=== PATIENT | female | born 1995 | race Caucasian/White ===

== ENCOUNTER 2017-11-24 15:38 | Emergency (ER) | payer OTHER ==
--- NOTE | 2017-11-24 15:41 | ED Physician Documentation ---
PD HPI HEENT - Stated complaint Stated Complaint: FO/L EAR - History obtained from History obtained from: Patient - History of Present Illness Timing - onset: Today Timing - details: Abrupt onset (She did put an ear plug in her ear, the compressed foam type, and when she tried to take it out it broke off. She tried to get it out but it is falling apart in little pieces as they try to grab at it. Her ear was getting tender. She came in here for further evaluation. This sat in there was just in the last hour or 2.), Still present Location: Left ear Associated symptoms: No: Headache Similar symptoms before: Has not had sx before Recently seen: Not recently seen Review of Systems Ears: reports: Loss of hearing (c/w ear plug) PD PAST MEDICAL HISTORY - Past Medical History HEENT: None - Allergies Allergies/Adverse Reactions: Allergies Allergy/AdvReac Type Severity Reaction Status Date / Time No Known Drug Allergies Allergy Verified 11/24/17 15:43 PD ED PE NORMAL - Vitals Vital signs reviewed: Yes - General General: Alert and oriented X 3, No acute distress, Well developed/nourished - HEENT HEENT: No: Ears normal (Right ear and canal are normal. The left ear canal has a phone earplug still present in the mid canal. It is occluding the ear canal so the distal part cannot be seen. I try taking it out with curette and also alligator forceps. He comes out in little crumbled pieces. I am able to get it out enough so there is just a small portion left down in the canal almost near the eardrum. It is getting pretty tender there and there is some slight bleeding from the wall of the canal from the manipulation. The remaining piece was tried to be irrigated out by nursing but it did not come loose right at this time. However the diameter of the piece remaining is smaller than the ear canal and she is pretty uncomfortable at this point so I think if we just keep irrigating it and give it some time the remaining part will come out in the next couple of days. This would also give time for ear canal to be less tender and she can recheck with her primary care or us if there is still concern for residual foreign body.) Results - Vitals Vitals: Vital Signs - 24 hr 11/24/17 15:41 Temperature 36.6 C Heart Rate 99 Respiratory 16 Rate Blood Pressure 129/87 H O2 Saturation 98 Oxygen O2 Source Room air PD MEDICAL DECISION MAKING - ED course Complexity details: re-evaluated patient - Sepsis Event Vital Signs: Vital Signs - 24 hr 11/24/17 15:41 Temperature 36.6 C Heart Rate 99 Respiratory 16 Rate Blood Pressure 129/87 H O2 Saturation 98 Oxygen O2 Source Room air Departure - Departure Disposition: 01 Home, Self Care Clinical Impression: Ear foreign body Qualifiers: Encounter type: initial encounter Laterality: left Qualified Code(s): T16.2XXA - Foreign body in left ear, initial encounter Condition: Stable Record reviewed to determine appropriate education?: Yes Instructions: ED Foreign Body Ear Canal Follow-Up: JAMESON Dennison [Provider Group] Comments: Saline or water ear drops/flush a few times daily for 1-2 days. Most of the plug is out, with just a small piece down by the ear drum that did not want to flush out just yet and the ear canal is pretty irritated now. We will see if it flushes out in the next day or so and let the ear canal heal up a bit. Recheck ear in a few days (Tuesday or so) to see if it has cleared all out (PCP or here) unless it does visually come out.
[2017-11-24 15:46] VITALS: BP 129/87
== END 2017-11-24 16:30 | disposition home or self-care (01) ==
LOC: ED 15:38
DX: T16.2XXA Foreign body in left ear, initial encounter (principal)
CPT/HCPCS: 69200; 99282; 99283

== ENCOUNTER 2017-12-02 12:02 | Emergency (ER) | payer OTHER ==
[2017-12-02 12:12] VITALS: BP 142/91
--- NOTE | 2017-12-02 13:04 | ED Physician Documentation ---
PD HPI HEENT FB - Stated complaint Additional information: L ear FB - Chief complaint Chief Complaint: Heent - History obtained from History obtained from: Patient - History of Present Illness Timing - onset: How many days ago (10) Pain level max: 4 Pain level now: 4 Location: Left ear Associated symptoms: No: Fever, Congestion, Rhinorrhea, Trismus, Unable to swallow, Swollen nodes, Facial swelling, Headache, Cough Similar symptoms before: Diagnosis (Left ear foreign body, part of an ear plug broke off in her ear canal) Recently seen: Other (Patient was seen here proximal a week ago, but it was unable to be removed at that time.) Review of Systems Constitutional: denies: Fever Ears: reports: Ear pain (Pain in the left ear) GI: denies: Vomiting, Diarrhea : reports: Other (Patient denies any possibility of . States she is not breast-feeding and is not trying to become ). denies: Now EGA PD PAST MEDICAL HISTORY - Past Medical History Past Medical History: No HEENT: None - Past Surgical History Past Surgical History: No - Present Medications Home Medications: Ambulatory Orders Medication Instructions Recorded Confirmed Neomycin/Polymyx/Hc Otic Drops 4 drops OT TID 7 Days #1 bottle 12/02/17 [Cortisporin Ear Susp] - Allergies Allergies/Adverse Reactions: Allergies Allergy/AdvReac Type Severity Reaction Status Date / Time No Known Drug Allergies Allergy Verified 12/02/17 12:12 - Social History Does the pt smoke?: No Smoking Status: Never smoker - Immunizations Immunizations are current?: Yes PD ED PE NORMAL - Vitals Vital signs reviewed: Yes - General General: Alert and oriented X 3, No acute distress - HEENT HEENT: Other (Left ear canal - [place] foreign object is in place. No bleeding. Unable to visualize the tympanic membrane) - Derm Derm: Warm and dry - Neuro Neuro: Alert and oriented X 3 Results - Vitals Vitals: Vital Signs - 24 hr 12/02/17 12:08 Temperature 36.9 C Heart Rate 69 Respiratory 16 Rate Blood Pressure 142/91 H O2 Saturation 96 Oxygen O2 Source Room air PD MEDICAL DECISION MAKING - ED course Complexity details: reviewed old records, considered differential, d/w patient ED course: Patient is a 22-year-old female who presents to the emergency department with left ear foreign body. A small amount of Dermabond was placed on the wooden end of a Q-tip which was then allowed to glue itself to the ear plug and was removed. Patient tolerated well. The ear canal is erythematous after removal and brain is dull and erythematous. Will place her on otic antibiotics and follow-up with her doctor for repeat evaluation. No evidence of perforation. Patient counseled regarding signs and symptoms for which I believe and urgent re-evaluation would be necessary. Patient with good understanding of and agreement to plan and is comfortable going home at this time This document was made in part using voice recognition software. While efforts are made to proofread this document, sound alike and grammatical errors may occur. - Sepsis Event Vital Signs: Vital Signs - 24 hr 12/02/17 12:08 Temperature 36.9 C Heart Rate 69 Respiratory 16 Rate Blood Pressure 142/91 H O2 Saturation 96 Oxygen O2 Source Room air Departure - Departure Disposition: 01 Home, Self Care Clinical Impression: Ear foreign body Qualifiers: Encounter type: initial encounter Laterality: left Qualified Code(s): T16.2XXA - Foreign body in left ear, initial encounter Condition: Good Instructions: ED Foreign Body Ear Canal Follow-Up: your,doctor in 1 week to recheck your ear. [Other] Prescriptions: Neomycin/Polymyx/Hc Otic Drops [Cortisporin Ear Susp] 4 drops OT TID 7 Days #1 bottle Comments: Use the ear drops as prescribed. This was sent to [facility]. Return if you worsen. Follow up with your doctor in 1 week for re-evaluation of your ear.
== END 2017-12-02 13:11 | disposition home or self-care (01) ==
LOC: ED 12:02
DX: T16.2XXA Foreign body in left ear, initial encounter (principal)
CPT/HCPCS: 69200; 99283

== ENCOUNTER 2018-03-11 19:37 | Emergency (ER) | payer OTHER ==
[2018-03-11 20:13] LABS: BILIRUBIN,URINE NEGATIVE (NEGATIVE); GLUCOSE, URINE (UA) NEGATIVE (NEGATIVE); KETONES,URINE (UA) NEGATIVE (NEGATIVE); LEUKOCYTE ESTERASE, URINE NEGATIVE (NEGATIVE); NITRITE,URINE NEGATIVE (NEGATIVE); OCCULT BLOOD,URINE NEGATIVE (NEGATIVE); PROTEIN,URINE NEGATIVE (NEGATIVE); UROBILINOGEN,URINE 0.2 (NORMAL) E.U./dL (NORMAL)
[2018-03-11 20:17] LABS: CLARITY,URINE CLEAR (CLEAR); HCG UR QUAL NEGATIVE
--- NOTE | 2018-03-11 20:33 | ED Physician Documentation ---
PD HPI ABD PAIN - Stated complaint Stated Complaint: BLOOD IN STOOL - Chief complaint Chief Complaint: Abd Pain - History obtained from History obtained from: Patient - History of Present Illness Timing - onset: Other (This is a 22-year-old woman with remote cholecystectomy who for the last 6 months has had soft stools of varying color with occasional hematochezia and upper abdominal pain without weight loss, sweats, or fevers. There is no nausea or vomiting with it.) Review of Systems Constitutional: denies: Fever, Chills, Myalgias, Fatigue, Weight Loss, Sweats GI: reports: Abdominal Pain, Diarrhea. denies: Nausea, Vomiting, Constipation PD PAST MEDICAL HISTORY - Past Medical History HEENT: None - Past Surgical History Past Surgical History: No - Present Medications Home Medications: Ambulatory Orders Medication Instructions Recorded Confirmed Neomycin/Polymyx/Hc Otic Drops 4 drops OT TID 7 Days #1 bottle 12/02/17 [Cortisporin Ear Susp] - Allergies Allergies/Adverse Reactions: Allergies Allergy/AdvReac Type Severity Reaction Status Date / Time No Known Drug Allergies Allergy Verified 03/11/18 19:58 - Social History Does the pt smoke?: No Smoking Status: Never smoker - Immunizations Immunizations are current?: Yes PD ED PE NORMAL - Vitals Vital signs reviewed: Yes - General General: Alert and oriented X 3, No acute distress - Abdomen Abdomen: Normal bowel sounds, Soft, Non tender - Extremities Extremities: No edema, No calf tenderness / cord - Neuro Neuro: Alert and oriented X 3, Normal speech Results - Vitals Vitals: Vital Signs - 24 hr 03/11/18 19:50 Temperature 36.9 C Heart Rate 89 Respiratory 18 Rate Blood Pressure 126/83 H O2 Saturation 100 Oxygen O2 Source Room air - Labs Labs: Laboratory Tests 03/11/18 03/11/18 03/11/18 20:00 20:21 20:21 WBC 9.9 RBC 4.83 Hgb 14.1 Hct 42.1 MCV 87.3 MCH 29.2 MCHC 33.4 RDW 13.1 Plt Count 367 MPV 7.6 L Neut # (Auto) 5.2 Lymph # (Auto) 3.8 H [place] # (Auto) 0.6 Eos # (Auto) 0.1 Baso # (Auto) 0.1 Absolute Nucleated RBC 0.00 Nucleated RBC % 0.0 Sodium 136 Potassium 3.5 Chloride 103 Carbon Dioxide 25 Anion Gap 8.0 BUN 12 Creatinine 0.6 Estimated GFR (MDRD) 126 Glucose 92 Calcium 9.4 Total Bilirubin 0.5 AST 39 ALT 48 Alkaline Phosphatase 81 Total Protein 8.1 Albumin 4.5 Globulin 3.6 Albumin/Globulin Ratio 1.3 Lipase 26 Urine Color YELLOW Urine Clarity CLEAR Urine pH 7.0 Ur Specific [place] 1.020 Urine Protein NEGATIVE Urine Glucose (UA) NEGATIVE Urine Ketones NEGATIVE Urine Occult Blood NEGATIVE Urine Nitrite NEGATIVE Urine Bilirubin NEGATIVE Urine Urobilinogen 0.2 (NORMAL) Ur Leukocyte Esterase NEGATIVE Ur Microscopic Review NOT INDICATED Urine Culture Comments NOT INDICATED Urine HCG, Qual NEGATIVE PD MEDICAL DECISION MAKING - ED course ED course: This is a 22-year-old woman with change in stool caliber and hematochezia that is subacute to chronic without weight loss or abdominal tenderness. The history is most consistent with inflammatory bowel disease, less likely would be malignancy or IBS. She will need a colonoscopy and this was discussed with her. Departure - Departure Disposition: 01 Home, Self Care Clinical Impression: Hematochezia Diarrhea Qualifiers: Diarrhea type: unspecified type Qualified Code(s): R19.7 - Diarrhea, unspecified Condition: Good Record reviewed to determine appropriate education?: Yes Follow-Up: Jimmy Zaidi MD [Provider Admit Priv/Credential] - Comments: FOLLOWUP WITH THE PHYSICIAN LISTED FOR EVALUATION FOR COLONOSCOPY Return for new or worsening symptoms.
[2018-03-11 20:36] LABS: BASOPHILS # (AUTO) 0.1 10^3/uL (0.0-0.1); BASOPHILS % (AUTO) 0.7 %; EOSINOPHILS # (AUTO) 0.1 10^3/uL (0.0-0.7); EOSINOPHILS % (AUTO) 1.3 %; HGB - HEMOGLOBIN 14.1 g/dL (12.0-16.0); LYMPHOCYTES # (AUTO) 3.8 10^3/uL (1.5-3.5); LYMPHOCYTES % (AUTO) 38.7 %; MEAN CORPUSCULAR HEMOGLOBIN 29.2 pg (27.0-31.0); MEAN CORPUSCULAR HGB CONC 33.4 g/dL (32.0-36.0); MEAN CORPUSCULAR VOLUME 87.3 fL (81.0-99.0); MEAN PLATELET VOLUME 7.6 fL (7.9-10.8); MONOCYTES # (AUTO) 0.6 10^3/uL (0.0-1.0); MONOCYTES % (AUTO) 6.1 %; NEUTROPHILS # (AUTO) 5.2 10^3/uL (1.5-6.6); NEUTROPHILS % (AUTO) 53.2 %; PLT - PLATELET COUNT 367 10^3/uL (130-450); RED BLOOD COUNT 4.83 10^6/uL (4.20-5.40); RED CELL DISTRIBUTION WIDTH 13.1 % (12.0-15.0); WHITE BLOOD COUNT 9.9 x10^3/uL (4.8-10.8)
[2018-03-11 20:55] LABS: ALBUMIN 4.5 g/dL (3.2-5.5); ALBUMIN/GLOBULIN RATIO 1.3 (1.0-2.2); BILIRUBIN,TOTAL 0.5 mg/dL (0.2-1.0); CALCIUM 9.4 mg/dL (8.5-10.3); CREATININE 0.6 mg/dL (0.4-1.0); TOTAL PROTEIN 8.1 g/dL (6.7-8.2)
[2018-03-11 21:21] VITALS: BP 138/83
== END 2018-03-11 21:23 | disposition home or self-care (01) ==
LOC: ED 19:37
DX: K92.1 Melena (principal)
CPT/HCPCS: 36415; 80053; 81001; 81003; 81025; 83690; 85025; 87086; 99283

== ENCOUNTER 2019-12-06 16:58 | Emergency (ER) | payer OTHER ==
--- NOTE | 2019-12-06 17:56 | ED Physician Documentation ---
History of Present Illness - Stated complaint Stated Complaint: DIZZINESS, LIGHTHEADED - Chief complaint Chief Complaint: Neuro - History obtained from History obtained from: Patient - History of Present Illness Timing: How many weeks ago (3) - Additonal information Additional information: 24-year-old female presents to the emergency department for chief complaint of feeling lightheaded and sometimes dizzy. She reports that when she goes from sitting to standing or laying she often see stars. She denies any syncope. She has no chest pain or shortness of breath. No abdominal pain nausea or vomiting. She denies a possibility of , she just ended her menses. The sensations that she experienced typically lasts seconds before abating fully. She denies any ataxia slurred speech arm or leg weakness, diplopia, headache. Denies dysuria urgency or frequency. She has no ear pain, tinnitus. She denies any history of DVT or cancer. No unilateral leg swelling. It should be noted that this young lady drove another 1 of our patients into the ER and decided to get checked out. She does however report to me that she called her doctor who told her also to come to the ER. Review of Systems Constitutional: reports: Reviewed and negative Eyes: reports: Reviewed and negative Ears: reports: Reviewed and negative Nose: reports: Reviewed and negative Throat: reports: Reviewed and negative Cardiac: reports: Reviewed and negative Respiratory: reports: Reviewed and negative GI: reports: Reviewed and negative : reports: Reviewed and negative Skin: reports: Reviewed and negative Musculoskeletal: reports: Reviewed and negative Neurologic: reports: Near syncope. denies: Generalized weakness, Focal weakness, Numbness, Difficulty speaking, Syncope, Seizure, Confused, Altered mental status, Headache, LOC PD PAST MEDICAL HISTORY - Past Medical History Past Medical History: No Cardiovascular: None Respiratory: None Neuro: None Endocrine/Autoimmune: None GI: None CARDIO TECH: None : None HEENT: None Psych: None Musculoskeletal: None Derm: None - Past Surgical History Past Surgical History: No General: Cholecystectomy HEENT: Tonsil/Adenoidectomy - Allergies Allergies/Adverse Reactions: Allergies Allergy/AdvReac Type Severity Reaction Status Date / Time No Known Drug Allergies Allergy Verified 12/06/19 17:05 - Social History Does the pt smoke?: No Smoking Status: Never smoker Does the pt drink ETOH?: No Does the pt have substance abuse?: Yes Substance Use and Type: Marijuana - Immunizations Immunizations are current?: Yes - POLST Patient has POLST: No PD ED PE EXPANDED - General General: Alert, No acute distress, Well developed/nourished - HEENT HEENT: Atraumatic, PERRL, EOMI - Eyes Eyes: PERRL, Normal accommodation - Neck Neck: Supple w/out meningeal sx. No: Adenopathy - Cardiac Cardiac: Regular Rate, Regular Rhythm, Radial strong equal, Femoral strong equal, Pedal strong equal, Cap refill < 2 sec. No: Murmur Present - Respiratory Respiratory: Clear to ausultation latoya. No: Distress, Labored, Stridor - Abdomen Abdomen: Normal Bowel sounds. No: Distended, Tender to palpation, Rebound, Guarding - Derm Derm: Normal color, Warm and dry. No: Rash - Extremities Extremities: Normal. No: Pedal edema bilateral - Neuro Neuro: Alert and Oriented X 3, Normal Sensation, Normal Speech, Normal reflexes, CNII-XII intact, PERRL, Cerebellar nl, Normal gait, Normal finger nose, Normal speech. No: Confused, Disoriented, Lethargic, Nystagmus - GCS Eye Opening: Spontaneous Motor: Obeys Commands Verbal: Oriented Total: 15 - Psych Psych: Normal Results - Vitals Vitals: Vital Signs - 24 hr 12/06/19 12/06/19 12/06/19 17:03 17:37 18:00 Temperature 36.8 C Heart Rate 64 64 Heart Rate [ 76 Sitting] Heart Rate [ 83 Standing] Heart Rate [ 77 Supine] Respiratory 16 16 Rate Blood Pressure 123/73 112/72 Blood Pressure 134/85 H [Sitting] Blood Pressure 117/81 H [Standing] Blood Pressure 119/75 [Supine] O2 Saturation 99 97 Oxygen O2 Source Room air - EKG (time done) 1724 Rate: Rate (enter#) (66) Rhythm: NSR [place]: Normal Intervals: Normal [place] QRS: Normal Ischemia: Normal ST segments Compare to prior EKG: Old EKG unavailable Computer interpretation: Agree with computer - Labs Labs: Laboratory Tests 12/06/19 12/06/19 12/06/19 17:53 17:53 17:53 WBC 10.9 H RBC 4.80 Hgb 14.5 Hct 42.6 MCV 88.8 MCH 30.2 MCHC 34.0 RDW 12.1 Plt Count 375 MPV 9.5 Neut # (Auto) 7.1 H Lymph # (Auto) 2.9 [place] # (Auto) 0.6 Eos # (Auto) 0.1 Baso # (Auto) 0.1 Absolute Nucleated RBC 0.00 Nucleated RBC % 0.0 Sodium 137 Potassium 3.6 Chloride 101 Carbon Dioxide 21 Anion Gap 15.0 H BUN 12 Creatinine 0.6 Estimated GFR (MDRD) 124 Glucose 83 Calcium 9.5 Total Bilirubin 0.7 AST 21 ALT 26 Alkaline Phosphatase 56 Troponin I High Sens < 2.3 L Total Protein 8.4 H Albumin 4.8 Globulin 3.6 Albumin/Globulin Ratio 1.3 Lipase 28 Urine Color Urine Clarity Urine pH Ur Specific [place] Urine Protein Urine Glucose (UA) Urine Ketones Urine Occult Blood Urine Nitrite Urine Bilirubin Urine Urobilinogen Ur Leukocyte Esterase Ur Microscopic Review Urine Culture Comments Urine HCG, Qual 12/06/19 17:53 WBC RBC Hgb Hct MCV MCH MCHC RDW Plt Count MPV Neut # (Auto) Lymph # (Auto) [place] # (Auto) Eos # (Auto) Baso # (Auto) Absolute Nucleated RBC Nucleated RBC % Sodium Potassium Chloride Carbon Dioxide Anion Gap BUN Creatinine Estimated GFR (MDRD) Glucose Calcium Total Bilirubin AST ALT Alkaline Phosphatase Troponin I High Sens Total Protein Albumin Globulin Albumin/Globulin Ratio Lipase Urine Color YELLOW Urine Clarity CLEAR Urine pH 6.0 Ur Specific [place] 1.025 Urine Protein NEGATIVE Urine Glucose (UA) NEGATIVE Urine Ketones >=80 H Urine Occult Blood NEGATIVE Urine Nitrite NEGATIVE Urine Bilirubin NEGATIVE Urine Urobilinogen 0.2 (NORMAL) Ur Leukocyte Esterase NEGATIVE Ur Microscopic Review NOT INDICATED Urine Culture Comments NOT INDICATED Urine HCG, Qual NEGATIVE - Rads (name of study) cxr Radiology: EMP read indepedently (No acute cardiopulmonary process) PD MEDICAL DECISION MAKING - ED course Complexity details: reviewed old records, reviewed results, re-evaluated patient, considered differential, d/w patient ED course: 24-year-old female presents to the emergency department for evaluation of feeling lightheaded and dizzy especially with position changes. She does endorse seeing stars in her visual field that lasts only a sec or two before abating. - Patient's EKG is sinus rhythm. High-sensitivity troponin is negative. Her chest x-ray shows no acute focal infiltrates. Exam today is not consistent with ACS or heart failure. - We did check patient's orthostatic vitals and there are no orthostatic changes. She has no signs of a urinary act infection and her neurological and cerebellar exam are double. At this time it is not clear what the cause of her lightheadedness is but she is stable for discharge home and she request to be discharged at this time. I have advised close follow-up with her primary care doctor Departure - Departure Disposition: Home, Self Care Clinical Impression: Light-headed feeling Condition: Stable Record reviewed to determine appropriate education?: Yes Follow-Up: DIEGO FOURNIER MD [Primary Care Provider] - Comments: [place] today your labs are unremarked below. Your chest x-ray and EKG are normal. We checked your orthostatic vital signs and those were also remote. At this time it is not clear what the cause of feeling lightheaded is. I do recommend close follow-up with your primary care provider. If you develop chest pain or shortness of breath or have any fainting episodes please return to the emergency department
[2019-12-06 18:11] LABS: BASOPHILS # (AUTO) 0.1 10^3/uL (0.0-0.1); BASOPHILS % (AUTO) 0.7 %; EOSINOPHILS # (AUTO) 0.1 10^3/uL (0.0-0.7); EOSINOPHILS % (AUTO) 0.7 %; HGB - HEMOGLOBIN 14.5 g/dL (12.0-16.0); LYMPHOCYTES # (AUTO) 2.9 10^3/uL (1.5-3.5); LYMPHOCYTES % (AUTO) 27.1 %; MEAN CORPUSCULAR HEMOGLOBIN 30.2 pg (27.0-31.0); MEAN CORPUSCULAR VOLUME 88.8 fL (81.0-99.0); MEAN PLATELET VOLUME 9.5 fL (7.9-10.8); MONOCYTES # (AUTO) 0.6 10^3/uL (0.0-1.0); MONOCYTES % (AUTO) 5.9 %; NEUTROPHILS # (AUTO) 7.1 10^3/uL (1.5-6.6); NEUTROPHILS % (AUTO) 65.2 %; PLT - PLATELET COUNT 375 10^3/uL (130-450); RED CELL DISTRIBUTION WIDTH 12.1 % (12.0-15.0); WHITE BLOOD COUNT 10.9 x10^3/uL (4.8-10.8)
[2019-12-06 18:12] LABS: BILIRUBIN,URINE NEGATIVE (NEGATIVE); GLUCOSE, URINE (UA) NEGATIVE (NEGATIVE); KETONES,URINE (UA) >=80 mg/dL (NEGATIVE); LEUKOCYTE ESTERASE, URINE NEGATIVE (NEGATIVE); NITRITE,URINE NEGATIVE (NEGATIVE); OCCULT BLOOD,URINE NEGATIVE (NEGATIVE); PROTEIN,URINE NEGATIVE (NEGATIVE); UROBILINOGEN,URINE 0.2 (NORMAL) E.U./dL (NORMAL)
[2019-12-06 18:13] LABS: CLARITY,URINE CLEAR (CLEAR)
[2019-12-06 18:14] LABS: HCG UR QUAL NEGATIVE
[2019-12-06 18:23] LABS: ALBUMIN 4.8 g/dL (3.2-5.5); ALBUMIN/GLOBULIN RATIO 1.3 (1.0-2.2); BILIRUBIN,TOTAL 0.7 mg/dL (0.2-1.0); CALCIUM 9.5 mg/dL (8.5-10.3); CREATININE 0.6 mg/dL (0.4-1.0); TOTAL PROTEIN 8.4 g/dL (6.7-8.2)
[2019-12-06 18:54] VITALS: BP 113/72
--- NOTE | 2019-12-06 19:03 | XRAY Report ---
PROCEDURE: Chest 1 View X-Ray INDICATIONS: Chest Pain TECHNIQUE: One view of the chest was acquired. COMPARISON: FINDINGS: Surgical changes and devices: None. Lungs and pleura: No pleural effusions or pneumothorax. Lungs are clear. Mediastinum: Mediastinal contours appear normal. Heart size is normal. Bones and chest wall: No suspicious bony lesions. Overlying soft tissues appear unremarkable. IMPRESSION: Normal for age, source of current symptoms is not seen. Reviewed by: Niraj Sotelo MD on 12/06/2019 7:01 PM PDT Approved by: Niraj Sotelo MD on 12/06/2019 7:01 PM PDT Station ID: [id number]
== END 2019-12-06 19:01 | disposition home or self-care (01) ==
LOC: ED 16:58
DX: R42 Dizziness and giddiness (principal); H53.8 Other visual disturbances
CPT/HCPCS: 36415; 71045; 80053; 81001; 81003; 81025; 83690; 84443; 84484; 85025; 87086; 93005; 99284

== ENCOUNTER 2020-03-20 18:52 | Emergency (ER) | payer OTHER ==
[2020-03-20 19:15] LABS: BILIRUBIN,URINE NEGATIVE (NEGATIVE); GLUCOSE, URINE (UA) NEGATIVE (NEGATIVE); KETONES,URINE (UA) NEGATIVE (NEGATIVE); LEUKOCYTE ESTERASE, URINE NEGATIVE (NEGATIVE); NITRITE,URINE NEGATIVE (NEGATIVE); OCCULT BLOOD,URINE NEGATIVE (NEGATIVE); PROTEIN,URINE NEGATIVE (NEGATIVE); UROBILINOGEN,URINE 0.2 (NORMAL) E.U./dL (NORMAL)
[2020-03-20 19:25] LABS: CLARITY,URINE CLOUDY (CLEAR); HCG UR QUAL NEGATIVE
[2020-03-20 19:25] LABS: BASOPHILS # (AUTO) 0.1 10^3/uL (0.0-0.1); BASOPHILS % (AUTO) 0.7 %; EOSINOPHILS # (AUTO) 0.1 10^3/uL (0.0-0.7); EOSINOPHILS % (AUTO) 0.6 %; HGB - HEMOGLOBIN 13.9 g/dL (12.0-16.0); LYMPHOCYTES % (AUTO) 25.3 %; MEAN CORPUSCULAR HEMOGLOBIN 29.7 pg (27.0-31.0); MEAN PLATELET VOLUME 9.6 fL (7.9-10.8); MONOCYTES # (AUTO) 0.6 10^3/uL (0.0-1.0); MONOCYTES % (AUTO) 4.7 %; NEUTROPHILS # (AUTO) 8.1 10^3/uL (1.5-6.6); NEUTROPHILS % (AUTO) 68.4 %; PLT - PLATELET COUNT 332 10^3/uL (130-450); RED BLOOD COUNT 4.68 10^6/uL (4.20-5.40); WHITE BLOOD COUNT 11.8 x10^3/uL (4.8-10.8)
[2020-03-20 19:26] LABS: AMORPHOUS SEDIMENT,UR Moderate /LPF; BACTERIA,URINE None Seen /HPF (None Seen); RBC,URINE None Seen /HPF (0-5); SQUAMOUS EPITHELIAL CELL,UR RARE Squamous (<= Few)
[2020-03-20 19:39] LABS: ALBUMIN 4.2 g/dL (3.2-5.5); ALBUMIN/GLOBULIN RATIO 1.3 (1.0-2.2); BILIRUBIN,TOTAL 0.4 mg/dL (0.2-1.0); CALCIUM 8.8 mg/dL (8.5-10.3); CREATININE 0.6 mg/dL (0.4-1.0); TOTAL PROTEIN 7.4 g/dL (6.7-8.2)
--- NOTE | 2020-03-20 19:55 | ED Physician Documentation ---
History of Present Illness - Stated complaint Stated Complaint: LT LOW BACK PX - Chief complaint Chief Complaint: Abd Pain - History obtained from History obtained from: Patient - History of Present Illness Timing: Today Pain level max: 8 Pain level now: 5 - Additonal information Additional information: 24-year-old female presents to the emergency department with right pelvic pain. She states this is worsened today. Intermittent, sharp. Normally lasts for a few seconds at a time. She states intermittently that is been there for several weeks to months. She states her LMP was 1 month ago. She states she had a Bartholin cyst in the past, but never an ovarian cyst. Review of Systems Constitutional: denies: Fever, Chills GI: denies: Vomiting, Constipation, Diarrhea, Hematemesis, Bloody / black stool : denies: Dysuria, Frequency, Hesitancy, Discharge, Now EGA Skin: denies: Rash Musculoskeletal: denies: Neck pain, Back pain Neurologic: denies: Headache PD PAST MEDICAL HISTORY - Past Medical History Cardiovascular: None Respiratory: None Neuro: None Endocrine/Autoimmune: None GI: None COMPLIANCE DIRECTOR: None : None HEENT: None Psych: None Musculoskeletal: None Derm: None - Past Surgical History Past Surgical History: Yes General: Cholecystectomy HEENT: Tonsil/Adenoidectomy - Present Medications Home Medications: Ambulatory Orders Medication Instructions Recorded Confirmed No Known Home Medications 03/20/20 03/20/20 - Allergies Allergies/Adverse Reactions: Allergies Allergy/AdvReac Type Severity Reaction Status Date / Time No Known Drug Allergies Allergy Verified 03/20/20 19:00 - Social History Does the pt smoke?: No Smoking Status: Never smoker Does the pt drink ETOH?: No Does the pt have substance abuse?: Yes - Immunizations Immunizations are current?: Yes - POLST Patient has POLST: No PD ED PE NORMAL - Vitals Vital signs reviewed: Yes - General General: Alert and oriented X 3, No acute distress, Well developed/nourished - HEENT HEENT: PERRL, Moist mucous membranes - Neck Neck: Supple, no meningeal sign - Cardiac Cardiac: RRR, Strong equal pulses - Respiratory Respiratory: No respiratory distress, Clear bilaterally - Abdomen Abdomen: Soft, Non distended, Other (Right pelvic tenderness. No tenderness at McBurney's point. No peritoneal signs.) - Back Back: No CVA TTP - Derm Derm: Warm and dry - Neuro Neuro: Alert and oriented X 3 - Psych Psych: Normal mood, Normal affect Results - Vitals Vitals: Vital Signs - 24 hr 03/20/20 03/20/20 03/20/20 18:55 19:00 20:49 Temperature 36.9 C 36.9 C 36.9 C Heart Rate 89 89 80 Respiratory 15 15 16 Rate Blood Pressure 132/74 H 132/74 H 130/60 O2 Saturation 99 99 100 Oxygen O2 Source Room air - Labs Labs: Laboratory Tests 03/20/20 03/20/20 03/20/20 19:05 19:16 19:16 WBC 11.8 H RBC 4.68 Hgb 13.9 Hct 42.1 MCV 90.0 MCH 29.7 MCHC 33.0 RDW 12.0 Plt Count 332 MPV 9.6 Neut # (Auto) 8.1 H Lymph # (Auto) 3.0 Wake # (Auto) 0.6 Eos # (Auto) 0.1 Baso # (Auto) 0.1 Absolute Nucleated RBC 0.00 Nucleated RBC % 0.0 Sodium 138 Potassium 3.6 Chloride 102 Carbon Dioxide 27 Anion Gap 9.0 BUN 7 Creatinine 0.6 Estimated GFR (MDRD) 124 Glucose 97 Calcium 8.8 Total Bilirubin 0.4 AST 19 ALT 16 Alkaline Phosphatase 51 Total Protein 7.4 Albumin 4.2 Globulin 3.2 Albumin/Globulin Ratio 1.3 Lipase 40 Urine Color LIGHT YELLOW Urine Clarity CLOUDY Urine pH 8.0 H Ur Specific [place] 1.015 Urine Protein NEGATIVE Urine Glucose (UA) NEGATIVE Urine Ketones NEGATIVE Urine Occult Blood NEGATIVE Urine Nitrite NEGATIVE Urine Bilirubin NEGATIVE Urine Urobilinogen 0.2 (NORMAL) Ur Leukocyte Esterase NEGATIVE Urine RBC None Seen Urine WBC 0-3 Ur Squamous Epith Cells RARE Squamous Amorphous Sediment Moderate Urine Bacteria None Seen Ur Microscopic Review INDICATED Urine Culture Comments NOT INDICATED Urine HCG, Qual NEGATIVE - Rads (name of study) Pelvic ultrasound Radiology: Prelim report reviewed, EMP read contemporaneously, See rad report PD MEDICAL DECISION MAKING - ED course Complexity details: reviewed results, re-evaluated patient, considered differential (No appendicitis, no peritonitis.), d/w patient ED course: 24-year-old female with a right ovarian cyst. There is a simple cyst on the right ovary, 1.9 x 1.7 x 1.9 cm. Likely the cause of her pain. No evidence of appendicitis. Patient is well-appearing, nontoxic. Afebrile. We will have her follow-up with her doctor for further care and repeat ultrasound in 3 to 6 weeks. Patient counseled regarding signs and symptoms for which I believe and urgent re-evaluation would be necessary. Patient with good understanding of and agreement to plan and is comfortable going home at this time This document was made in part using voice recognition software. While efforts are made to proofread this document, sound alike and grammatical errors may occur. 1. No evidence of ovarian torsion. Simple cyst seen in right ovary as above. Dominant follicles are noted in left ovary. No solid appearing ovarian lesion. 2. Mildly septated uterus. No endometrial mass or fluid. No discrete uterine fibroid. Departure - Departure Disposition: 01 Home, Self Care Clinical Impression: Ovarian cyst Qualifiers: Laterality: right Qualified Code(s): N83.201 - Unspecified ovarian cyst, right side Condition: Good Instructions: ED Cyst Ovarian Follow-Up: your,doctor in 2-3 weeks [Other] Comments: Follow-up with your doctor for further care. You will likely need a repeat ultrasound in about 4 weeks to ensure resolution of the cyst. Return if you worsen. You can use Motrin or Tylenol as needed for pain. You could also try Midol or Pamprin. Discharge Date/Time: 03/20/20 20:50
[2020-03-20] MEDS ORDERED: KETOROLAC 30 MG/ML VIAL IVP STA (20:38)
[2020-03-20 20:50] VITALS: BP 130/60
--- NOTE | 2020-03-20 20:53 | Ultrasound Report ---
PROCEDURE: Pelvic w/Transvag+Doppler Comp INDICATIONS: pelvic pain, R TECHNIQUE: Real-time scanning was performed of the pelvic organs, with image documentation. Additional endovagi nal scanning was necessary due to incomplete visualization of the adnexal and endometrial structures by transabdominal scanning. COMPARISON: None. FINDINGS: Transabdominal scanning: Limited scanning through the kidneys shows no hydronephrosis. No pathologi c free abdominal or pelvic fluid. Endovaginal scanning: Uterus: Uterus is normal in size at 6.5 x 2.9 x 4.2 cm. The endometrium measures 10 mm in combined thickness. Mildly septated uterus is noted. No discrete uterine fibroid. Nabothian cysts are noted al samir the endocervical canal measures up to 5 x 8 mm in size. No gross endometrial mass or fluid. Ovaries: Right ovary measures 3.2 x 2.7 x 2.5 cm in size. 1.9 x 1.7 x 1.9 cm simple cyst is seen in right ovary. Left ovary measures 2.4 x 2.4 x 2.3 cm in size. Dominant follicle less than 1 cm is note d in left ovary. No solid appearing ovarian lesion. Normal arterial and venous flow is seen in bilate ral ovaries on color Doppler images. IMPRESSION: 1. No evidence of ovarian torsion. Simple cyst seen in right ovary as above. Dominant follicles are n oted in left ovary. No solid appearing ovarian lesion. 2. Mildly septated uterus. No endometrial mass or fluid. No discrete uterine fibroid. Reviewed by: Jim Biswas MD on 03/20/2020 8:52 PM PST Approved by: Jim Biswas MD on 03/20/2020 8:52 PM PST Station ID: [id number]
== END 2020-03-20 20:50 | disposition home or self-care (01) ==
LOC: ED 18:52
DX: N83.201 Unspecified ovarian cyst, right side (principal)
CPT/HCPCS: 80053; 81001; 81003; 81025; 83690; 85025; 87086; 93975; 96374; 99284

== ENCOUNTER 2020-05-21 08:00 | Outpatient (CLI) | payer OTHER ==
[2020-05-21 18:31] LABS: MUDS CUTOFF CONCENTRATIONS CUTOFF CONC BELOW:
[2020-05-21 18:34] LABS: BILIRUBIN,URINE NEGATIVE (NEGATIVE); GLUCOSE, URINE (UA) NEGATIVE (NEGATIVE); KETONES,URINE (UA) NEGATIVE (NEGATIVE); LEUKOCYTE ESTERASE, URINE NEGATIVE (NEGATIVE); NITRITE,URINE NEGATIVE (NEGATIVE); OCCULT BLOOD,URINE NEGATIVE (NEGATIVE); PH,URINE 7.5 PH (5.0-7.5); PROTEIN,URINE NEGATIVE (NEGATIVE); UROBILINOGEN,URINE 0.2 (NORMAL) E.U./dL (NORMAL)
[2020-05-21 18:37] LABS: BACTERIA,URINE None Seen /HPF (None Seen); CLARITY,URINE CLEAR (CLEAR); RBC,URINE 0-5 /HPF (0-5); SQUAMOUS EPITHELIAL CELL,UR FEW Squamous (<= Few); WBC,URINE 0-3 /HPF (0-5)
[2020-05-21 18:38] LABS: MUCUS,URINE Few Strands
[2020-05-21 18:42] LABS: AMPHETAMINE SCREEN,URINE NEGATIVE (NEGATIVE); BARBITURATE SCREEN,UR NEGATIVE (NEGATIVE); BENZODIAZEPINES SCREEN, URINE NEGATIVE (NEGATIVE); COCAINE SCREEN URINE NEGATIVE (NEGATIVE); METHADONE SCREEN, URINE NEGATIVE (NEGATIVE); METHAMPHETAMINES SCREEN, URINE NEGATIVE (NEGATIVE); OPIATE SCREEN, URINE NEGATIVE (NEGATIVE); THC CANNABINOID SCREEN, URINE NEGATIVE (NEGATIVE); TRICYCLIC ANTIDEPRESSANT,URINE NEGATIVE (NEGATIVE)
[2020-05-21 18:43] LABS: OXYCODONE SCREEN, URINE NEGATIVE (NEGATIVE); PROPOXYPHENE SCREEN, URINE NEGATIVE (NEGATIVE)
== END 2020-05-21 23:59 | disposition home or self-care (01) ==
LOC: LAB.R 08:00
PROVIDERS: ATTEND Nurse Practitioner Obstetrics & Gynecology
DX: Z34.90 Encounter for supervision of normal pregnancy, unspecified, unspecified trimester (principal)
CPT/HCPCS: 80306; 81001; 87086

== ENCOUNTER 2020-05-29 18:41 | Outpatient (CLI) | payer OTHER ==
--- NOTE | 2020-05-30 11:57 | Ultrasound Report ---
PROCEDURE: OB First Trimester w/TV INDICATIONS: SUPERVISION OF NORMAL OUTSIDE/PRIOR DATING DATA: Last menstrual period (LMP): 03/04/2020. LMP-based estimated date of delivery (QUIQUE): 12/09/2020. First dating scan (date and location): 05/29/2020, current study. Estimated date of delivery (QUIQUE) from first dating scan: 01/08/2021. TECHNIQUE: Real-time scanning was performed of the fetus and maternal pelvic organs, with image documentation. Endovaginal scanning was also performed to better visualize the fetus and maternal ovaries. COMPARISON: None during this FINDINGS: Embryo: Single pole is present with an average crown-rump length of 1.6 cm which corresponds t o an 8 week 0 day . A normal yolk sac and unfused amnion are present. heart rate is 17 0 bpm. Measurement variability in dating: +/- 4 weeks by LMP, +/- 7 days by mean sac diameter (use before 6 weeks gestation if crown-rump length not able to be measured), +/- 5 days by crown-rump length (6-12 weeks gestation). Maternal organs: The cervix is closed and there are a few nabothian cysts present. Caudal to the ges tational sac, there is a heterogeneous, mildly hyperechoic subchorionic hemorrhage measuring about 1. 6 x 1.9 x 2.3 cm. The left ovary contains a peripherally hypervascular involuting follicle measuring about 1.8 cm. Both ovaries demonstrate a normal follicular echotexture otherwise. No adnexal mass or free fluid. IMPRESSION: 1. Single living intrauterine with a gestational age of 8 weeks, 0 days by ultrasound, and estimated due date of 01/08/2021. 2. Small subchorionic hemorrhage, likely implantation bleed. 3. Closed cervix. 4. Left ovarian corpus luteum. Reviewed by: Loni Rizo MD on 05/30/2020 11:56 AM PST Approved by: Loni Rizo MD on 05/30/2020 11:56 AM PST Station ID: [id number]
== END 2020-05-29 18:42 | disposition home or self-care (01) ==
LOC: DI 18:41
PROVIDERS: ATTEND Advanced Practice Midwife
DX: O46.8X1 Other antepartum hemorrhage, first trimester (principal); Z3A.08 8 weeks gestation of pregnancy

== ENCOUNTER 2020-06-14 17:57 | Outpatient (CLI) | payer OTHER ==
--- NOTE | 2020-06-14 20:07 | Ultrasound Report ---
PROCEDURE: OB First Trimester w/TV INDICATIONS: THREATENED OUTSIDE/PRIOR DATING DATA: Last menstrual period (LMP): 03/04/2020. LMP-based estimated date of delivery (QUIQUE): 12/09/2020. First dating scan (date and location): 05/29/2020. Estimated date of delivery (QUIQUE) from first dating scan: 01/08/2021. TECHNIQUE: Real-time scanning was performed of the fetus and maternal pelvic organs, with image documentation. Endovaginal scanning was also performed to better visualize the fetus and maternal ovaries. COMPARISON: 05/29/2020 FINDINGS: Embryo: Single intrauterine is identified. [place]-rump length measures 2.1 cm corresponding to 8 weeks 5 days. This compares to a gestational age of initial ultrasound of 10 weeks 2 days. No f etal heart tones are identified. Placenta is anterior. Focus of subchorionic hemorrhage is present me asuring 19 x 9 x 20 mm. Measurement variability in dating: +/- 4 weeks by LMP, +/- 7 days by mean sac diameter (use before 6 weeks gestation if crown-rump length not able to be measured), +/- 5 days by crown-rump length (6-12 weeks gestation). Maternal organs: Ovaries are within normal limits.. IMPRESSION: 1. Single intrauterine without heart tones consistent with demise. Gestational age is 8 weeks 5 days compared to 10 weeks 2 days from initial ultrasound. Reviewed by: Cindy Brown MD on 06/14/2020 8:05 PM PDT Approved by: Cindy Brown MD on 06/14/2020 8:05 PM PDT Station ID: [id number]
[2020-06-14 21:38] LABS: CHLAMYDIA TRACHOMATIS DNA NEGATIVE (NEGATIVE); NEISSERIA GONORRHOEAE DNA NEGATIVE (NEGATIVE); TRICHOMONAS VAGINALIS DNA NEGATIVE (NEGATIVE)
== END 2020-06-14 17:58 | disposition home or self-care (01) ==
LOC: DI 17:57
PROVIDERS: ATTEND Obstetrics & Gynecology
DX: O36.8310 Maternal care for abnormalities of the fetal heart rate or rhythm, first trimester, not applicable or unspecified (principal); Z3A.08 8 weeks gestation of pregnancy; Z11.3 Encounter for screening for infections with a predominantly sexual mode of transmission
CPT/HCPCS: 87491; 87591; 87661